=== PATIENT | male | born 1995 | race Two or more races ===

== ENCOUNTER 2024-03-27 15:40 | Emergency (ER) | payer MEDICAID ==
[~2024-03-27] VITALS: Ht 185.4 cm; Wt 73.0 kg
[2024-03-27 15:44] VITALS: O2SAT 99
[2024-03-27 16:05] VITALS: BP 133/81; PULSE 85; RESP 16; TEMP 98.4; O2SAT 99
[2024-03-27] MEDS ORDERED: DOXY100C74 MT (20:58)
[2024-03-27] MEDS: DOXYCYCLINE HYCLATE 100MG CAPSULE PO ONE (21:02)
[2024-03-27] MEDS: CEFTRIAXONE SODIUM 500MG VIAL IM ONE (21:02)
== END 2024-03-27 21:03 | disposition left against medical advice (07) ==
LOC: ER 15:40
DX: R36.9 Urethral discharge, unspecified (principal); R30.0 Dysuria
CPT/HCPCS: 99283